=== PATIENT | male | born 1940 | race Caucasian/White ===

== ENCOUNTER 2017-09-28 00:56 | Emergency (ER) | payer MEDICARE, OTHER ==
[~2017-09-28] VITALS: Ht 165.1 cm; Wt 72.6 kg
[2017-09-28] MEDS ORDERED: RENVELA0.8 GM ORAL (01:00)
[2017-09-28 01:10] VITALS: BP 111/60
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
[2017-09-28 02:18] VITALS: BP 109/66
== END 2017-09-28 02:18 | disposition home or self-care (01) ==
LOC: EDBD 00:56 → EMR 01:30
DX: R04.0 Epistaxis (principal); N18.6 End stage renal disease; Z99.2 Dependence on renal dialysis
CPT/HCPCS: 30901; 99283

== ENCOUNTER 2017-12-06 09:23 | Emergency (ER) | payer MEDICARE, OTHER ==
[~2017-12-06] VITALS: Ht 142.2 cm; Wt 52.6 kg
[~2017-12-06 09:23] MED LIST: RENVELA0.8 GM ORAL
[2017-12-06] MEDS ORDERED: SENSIPAR30 MG ORAL (09:35)
[2017-12-06 11:10] VITALS: BP 131/66
--- NOTE | 2017-12-06 11:46 | Diagnostic Imaging Report ---
Indication: Pain Technique: 3 views right hand Comparison: none Findings: There is a comminuted posteriorly angulated fracture of the first distal phalanx. No other acute fractures are demonstrated. No dislocations. There are vascular calcifications. The bones are osteoporotic. Impression: Positive for first distal phalangeal fracture Osteoporosis. Findings discussed by phone with Dr. Quach or at the time of interpretation
--- NOTE | 2017-12-09 22:33 | Emergency Room Report ---
History of Present Illness General Chief Complaint: Upper Extremity Injury Source: Patient Present Illness HPI Patient presents with complaints of thumb pain Patient is here with son There was apparently an injury at nighttime as the patient was rolling in bed and they feel that his thumb was stuck Causing the injury They deny any fall to the ground patient denies any headache denies any chest pain or shortness of breath Has fairly localized discomfort to the thumb distally itself later he does complain of more proximal discomfort as well Allergies: Coded Allergies: No Known Allergies (Unverified , 09/28/17) Patient History Past Medical History: see triage record Pertinent Family History: none Reviewed Nursing Documentation: PMH: Agreed, PSxH: Agreed Nursing Documentation-PMH Hx Cardiac Problems: Yes - AICD to right chest. Hx Hypertension: Yes Hx Dialysis: Yes - Access to LUE, Dialysis MWF. Review of Systems All Other Systems: negative except mentioned in HPI Physical Exam Vital Signs Date Time Temp Pulse Resp B/P (MAP) Pulse Ox O2 Delivery O2 Flow Rate FiO2 12/06/17 09:29 97.7 56 17 129/58 94 Room Air Sp02 EP Interpretation: reviewed, normal General Appearance: well appearing, no apparent distress Head: normocephalic, atraumatic Eyes: bilateral eye PERRL ENT: hearing grossly normal, normal pharynx Neck: full range of motion, supple Respiratory: chest non-tender, lungs clear Cardiovascular #1: regular rate, rhythm, no edema Gastrointestinal: normal bowel sounds, non tender Musculoskeletal: other - Mild subungual hematoma right thumb, swelling to the thumb in general tender on palpation distally, Neurologic: alert, oriented x3, responsive Skin: other - As above Lymphatic: no adenopathy Procedures Splinting Splinting : Consent: Verbal Location: Finger splint Pre-Made Type: metal Splint: thumb spica Pre-Proc Neuro Vasc Exam: normal Post-Proc Neuro Vasc Exam: normal Patient Tolerated: Well Complications: None Medical Decision Making Diagnostic Impression: Primary Impression: thumb fracture ER Course X-ray reveals evidence of fracture of the distal phalangeal region Patient had a splint applied I did discuss the case with the patient and the son He also had a thumb spica applied there was no obvious snuff box tenderness The patient stable for close outpatient followup Other X-Ray Diagnostic Results Other X-Ray Diagnostic Results : X-Ray ordered: Right hand # of Views/Limited Vs Complete: 4 View Indication: Pain EP Interpretation: Yes Interpretation: other - Fracture of the fifth distal pharyngeal, mild displacement mild soft tissue swelling no foreign body Impression: Other - Acute fracture distal fifth phalangeal Last Vital Signs Date Time Temp Pulse Resp B/P (MAP) Pulse Ox O2 Delivery O2 Flow Rate FiO2 12/06/17 11:10 98.2 88 16 131/66 99 Room Air Status: improved Disposition: HOME, SELF-CARE Condition: Stable Referrals: NON PHYSICIAN (PCP) Patient Instructions: Thumb Fracture Additional Instructions: Patient is provided with the discharge instructions notified to follow up with primary doctor in the next 2-3 days otherwise return to the er with any worsening symptoms. Please note that this report is being documented using [employer] technology. This can lead to erroneous entry secondary to incorrect interpretation by the dictating instrument. SUKHI XIONG D.O. Dec 09, 2017 22:33
== END 2017-12-06 11:10 | disposition home or self-care (01) ==
LOC: EMR 09:40
DX: S62.521A Displaced fracture of distal phalanx of right thumb, initial encounter for closed fracture (principal); W06.XXXA Fall from bed, initial encounter; Y92.003 Bedroom of unspecified non-institutional (private) residence as the place of occurrence of the external cause; I10 Essential (primary) hypertension; Z95.810 Presence of automatic (implantable) cardiac defibrillator
CPT/HCPCS: 99283

== ENCOUNTER 2018-07-08 06:25 | Inpatient (IN) | payer MEDICARE, OTHER ==
[~2018-07-08] VITALS: Ht 154.9 cm; Wt 59.9 kg
[~2018-07-08 06:25] MED LIST changes: +SENSIPAR30 MG ORAL
--- NOTE | 2018-07-08 07:23 | Emergency Room Report ---
History of Present Illness General Chief Complaint: General Complaint Source: Patient Present Illness HPI Mr. Sorto is 77 yo male with hx of ESRD HD on MWF who has a clotted dialysis shunt. He was unable to obtain dialysis on Friday because the AV access in the left upper extremity would not function. He was seen in the ER at outside hospital last night. However resources were not available to declot the shunt. He does not have any discomfort. He denies shortness of breath. Denies pain. PCP Guilherme Treviño Manager [employer] [facility] Allergies: Coded Allergies: No Known Allergies (Unverified , 09/28/17) Patient History Limited by: language barrier - relative provided interpretation Reviewed Nursing Documentation: PMH: Agreed; PSxH: Agreed Nursing Documentation-PMH Past Medical History: No History, Except For Hx Hypertension: Yes Hx Dialysis: Yes - MWF Review of Systems Constitutional: Denies: fever Respiratory: Denies: cough Cardiovascular: Denies: chest pain Gastrointestinal: Denies: abdominal pain Neurological: Denies: headache All Other Systems: negative except mentioned in HPI Physical Exam Vital Signs Date Time Temp Pulse Resp B/P (MAP) Pulse Ox O2 Delivery O2 Flow Rate FiO2 07/08/18 06:42 20 124/55 100 Room Air Sp02 EP Interpretation: reviewed, normal General Appearance: no apparent distress, alert, GCS 15, non-toxic Head: normocephalic, atraumatic Eyes: bilateral eye normal inspection, bilateral eye PERRL ENT: hearing grossly normal, normal pharynx, no angioedema, normal voice Neck: full range of motion, supple/symm/no masses Respiratory: chest non-tender, lungs clear, normal breath sounds, speaking full sentences Cardiovascular #1: regular rate, rhythm, no edema Gastrointestinal: normal bowel sounds, non tender, soft, non-distended, no guarding, no rebound Rectal: deferred Genitourinary: normal inspection, no CVA tenderness Musculoskeletal: back normal, gait/station normal, normal range of motion, non- tender, other - LUE: pulsatile AV access at bicep no thrill no bruit no signs of infection Neurologic: alert, oriented x3, responsive, motor strength/tone normal, sensory intact, speech normal Psychiatric: judgement/insight normal, memory normal, mood/affect normal, no suicidal/homicidal ideation Skin: normal color, no rash, warm/dry, well hydrated Lymphatic: no adenopathy Medical Decision Making Diagnostic Impression: Primary Impression: Clotted dialysis shunt ER Course Mr. Sorto will be admitted to the service of Dr. Ribera for AV shunt complication, clotted shunt of the LUE and anticipated HD therapy. Labs Test 07/08/18 07:18 White Blood Count 5.9 K/UL (4.8-10.8) Red Blood Count 3.85 M/UL (4.70-6.10) Hemoglobin 13.0 G/DL (14.2-18.0) Hematocrit 39.4 % (42.0-52.0) Mean Corpuscular Volume 102 FL (80-99) Mean Corpuscular Hemoglobin 33.7 PG (27.0-31.0) Mean Corpuscular Hemoglobin Concent 32.9 G/DL (32.0-36.0) Red Cell Distribution Width 15.6 % (11.6-14.8) Platelet Count 140 K/UL (150-450) Mean Platelet Volume 6.3 FL (6.5-10.1) Neutrophils (%) (Auto) 76.1 % (45.0-75.0) Lymphocytes (%) (Auto) 9.8 % (20.0-45.0) Monocytes (%) (Auto) 7.6 % (1.0-10.0) Eosinophils (%) (Auto) 5.4 % (0.0-3.0) Basophils (%) (Auto) 1.2 % (0.0-2.0) Prothrombin Time 10.5 SEC (9.30-11.50) Prothromb Time International Ratio 1.0 (0.9-1.1) Activated Partial Thromboplast Time 29 SEC (23-33) Sodium Level 136 MMOL/L (136-145) Potassium Level 5.0 MMOL/L (3.5-5.1) Chloride Level 96 MMOL/L (98-107) Carbon Dioxide Level 19 MMOL/L (21-32) Anion Gap 21 mmol/L (5-15) Blood Urea Nitrogen 144 mg/dL (7-18) Creatinine 13.3 MG/DL (0.55-1.30) Estimat Glomerular Filtration Rate mL/min (>60) Glucose Level 93 MG/DL (74-106) Calcium Level 8.5 MG/DL (8.5-10.1) Lab Results Impression normal WBC normal potassium EKG Diagnostic Results EKG Time: 07:56 Rate: normal Rhythm: NSR, other - first degree AV block ST Segments: no acute changes Other Impression rate 60 bpm rightward axis devation nonspecific T wave abnormality Last Vital Signs Date Time Temp Pulse Resp B/P (MAP) Pulse Ox O2 Delivery O2 Flow Rate FiO2 18 06:42 20 124/55 100 Room Air Disposition: ADMITTED INPATIENT Admit Decision Time: 07:22 Condition: Stable Referrals: NOT CHOSEN IPA/,REFERRING (PCP) Susy Mccoy MD Jul 08, 2018 07:22
[2018-07-08 07:31] VITALS: BP 124/55
[2018-07-08 07:46] LABS: BASOPHILS % (AUTO) 1.2 % (0.0-2.0); EOSINOPHILS % (AUTO) 5.4 % (0.0-3.0); HEMATOCRIT 39.4 % (42.0-52.0); LYMPHOCYTES % (AUTO) 9.8 % (20.0-45.0); MEAN CORPUSCULAR VOLUME 102 FL (80-99); MONOCYTES % (AUTO) 7.6 % (1.0-10.0); NEUTROPHILS % (AUTO) 76.1 % (45.0-75.0); PLATELET COUNT 140 K/UL (150-450); RED BLOOD COUNT 3.85 M/UL (4.70-6.10); RED CELL DISTRIBUTION WIDTH 15.6 % (11.6-14.8); WHITE BLOOD COUNT 5.9 K/UL (4.8-10.8)
[2018-07-08 07:54] LABS: ANION GAP 21 mmol/L (5-15); BLOOD UREA NITROGEN 144 mg/dL (7-18); CALCIUM 8.5 MG/DL (8.5-10.1); CARBON DIOXIDE 19 MMOL/L (21-32); CHLORIDE 96 MMOL/L (98-107); CREATININE 13.3 MG/DL (0.55-1.30); SODIUM 136 MMOL/L (136-145)
[2018-07-08 11:44] VITALS: BP 132/65
[2018-07-08 12:03] VITALS: BP 132/65
--- NOTE | 2018-07-08 14:53 | Consultation ---
Consult Note Consult Note asked to eval for dialysis management Mr. Sorto is 77 yo male with hx of ESRD HD on MWF who has a clotted dialysis shunt. He was unable to obtain dialysis on Friday because the AV access in the left upper extremity would not function. He was seen in the ER at outside hospital last night. However resources were not available to declot the shunt. He does not have any discomfort. He denies shortness of breath. Denies pain. PCP Guilherme Treviño [employer] [facility] seen in room 404 son present examined data reviewed Assessment/Plan ESRD Clotted left arm vascular graft last dialysis 07/04 plan: need declotting of vascular access and dialysis afterwards- discussed with PMD Vasc surgeon is called Sam Jones MD Jul 08, 2018 14:53
[2018-07-08] MEDS ORDERED: Docusate 100mg cap ORAL SCH (18:00)
[2018-07-08] MEDS ORDERED: Atorvastatin 20mg tab ORAL SCH (21:00)
[2018-07-08] MEDS ORDERED: Heparin 5000 units/ml inj SUBQ SCH (21:00)
[2018-07-09] MEDS ORDERED: Sensipar 30mg Tab ORAL SCH (09:00)
--- NOTE | 2018-07-09 12:43 | History & Physical ---
History and Physical History & Physicial Patient left AMA. Enedelia Herrera NP Jul 09, 2018 12:43
--- NOTE | 2018-07-09 12:43 | Discharge Summary ---
Discharge Summary Discharge Summary _ DATE OF ADMISSION: 07/08/2018 DATE OF DISCHARGE: 07/08/2018 CONSULTANTS: Dr. Sam Jones BRIEF HOSPITAL COURSE: Patient is a 77-year-old male, with history of end-stage renal disease on hemodialysis, was unable to get dialysis due to AV access in the left upper extremity mild function. He was seen at an emergency room in an outside hospital, however, resources were not available to declot the shunt. He denied shortness of breath, denied pain. On evaluation at ED, blood work showed creatinine 13, potassium 5. EKG was in normal sinus rhythm with first-degree AV block and nonspecific T-wave abnormality. He was then admitted for evaluation of clotted dialysis shunt. He was seen by Dr. Sam Jones. He was recommended vascular surgeon evaluation. Full treatment was not carried out as patient left AGAINST MEDICAL ADVICE. FINAL DIAGNOSES: End-stage renal disease on hemodialysis with clotted dialysis shunt. Noncompliance as patient left AGAINST MEDICAL ADVICE. DISPOSITION: Patient left AMA I have been assigned to dictate discharge summary on this account, and I was not involved in the patient's management. Enedelia Herrera NP Jul 09, 2018 12:43
--- NOTE | 2018-07-09 15:56 | Diagnostic Imaging Report ---
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 The distal arterio-venous fistula and anastomosis are patent. Imaging also reveals patency of the left arm deep venous system, and the arterial system. SALIMA Watkins was notified of abnormal results at 1430 hours.
--- NOTE | 2018-07-09 22:30 | History and Physical Report ---
DATE OF ADMISSION: 07/08/2018 SOURCE OF INFORMATION: The patient and EMR. HISTORY OF PRESENT ILLNESS: The patient is a 77-year-old male with a history of end-stage renal disease. The patient secondary to the malfunctioning of the graft on the left arm. Today, the patient denies any shortness of breath or chest pain. The patient is accompanied by his son. The patient denies any abnormal bleeding, fever, or chills. REVIEW OF SYSTEMS: All 12 elements of review of systems reviewed. Pertinent positive and negative as above. PAST SURGICAL HISTORY: Left-sided AV graft placement. MEDICATIONS: Current hospital medications including, but not limited to Renagel and PhosLo. SOCIAL HISTORY: Positive for prior history of smoking and drinking alcohol, however, the patient denies any recent active tobacco use or alcohol abuse. FAMILY HISTORY: Reviewed, noncontributory. PHYSICAL EXAMINATION: VITAL SIGNS: Blood pressure 110/80, temperature 98.2 degrees, and pulse oximetry 98% on room air. HEAD AND NECK: Atraumatic and normocephalic. CHEST: Clear to auscultation. HEART: S1 and S2. Regular rate and rhythm. ABDOMEN: Soft. No organomegaly. MUSCULOSKELETAL: No gross focal motor deficit. Positive for the left-sided AV shunt/graft placements. No tenderness in site. LABORATORY AND DIAGNOSTIC DATA: Reviewed in the chart. ASSESSMENT: 1. End-stage renal disease, on hemodialysis. 2. Left-sided AV graft shunt malfunction. 3. Heart failure. 4. Coronary artery disease. PLAN OF CARE: I discussed the care with Dr. Cruz, vascular surgeon and Nephrology, Dr. Jones. The patient is in disagreement for placing any alternative methods for continuation of hemodialysis. I explained the medical necessity for such measures, however, he decided to leave the hospital against medical advice. James Ribera M.D. DR: EYAL JOB#: [id number] CC: HILARY
== END 2018-07-08 17:40 | disposition left against medical advice (07) | DRG 314 ==
LOC: EMR 06:55 → 4E 07:35 → EDBEDREQ 10:43
DX: T82.318A Breakdown (mechanical) of other vascular grafts, initial encounter (principal); N18.6 End stage renal disease; Y83.2 Surgical operation with anastomosis, bypass or graft as the cause of abnormal reaction of the patient, or of later complication, without mention of misadventure at the time of the procedure; Z99.2 Dependence on renal dialysis; I50.9 Heart failure, unspecified; I25.10 Atherosclerotic heart disease of native coronary artery without angina pectoris; I44.0 Atrioventricular block, first degree
CPT/HCPCS: 36415; 80048; 85025; 85610; 85730; 86140; 86850; 86900; 86901; 93005; 93971